=== PATIENT | female | born 1950 | race Caucasian/White ===

== ENCOUNTER 2018-10-27 06:07 | Day surgery (SDC) | payer OTHER ==
[~2018-10-27 06:07] MED LIST: BENADRYL50 MG PO; CATAFLAM50 MG PO; NEURONTIN800 MG PO; ZOLOFT50 MG PO
== END 2018-10-27 16:34 | disposition home or self-care (01) ==
LOC: CIR.AMB 06:07
DX: S42.491K Other displaced fracture of lower end of right humerus, subsequent encounter for fracture with nonunion (principal); M00.821 Arthritis due to other bacteria, right elbow